=== PATIENT | male | born 1945 | race American Indian/Alaskan Native ===

== ENCOUNTER 2018-11-28 11:39 | Emergency (ER) | payer MEDICARE, OTHER ==
[2018-11-28 11:50] VITALS: BP 149/72
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
--- NOTE | 2018-11-28 12:15 | XRay Report ---
LEFT SHOULDER RADIOGRAPHS INDICATION: Left shoulder pain. COMPARISON: None similar at this institution. FINDINGS: Frontal and Y views of the left shoulder, 3 projections demonstrate normal humeral head contour, well positioned against the glenoid. Normal acromioclavicular joint. Preserved scapular contour. Normal visualized soft tissues and left lung. Few left upper to mid rib deformities, exact age indeterminate. Possible osteopenia. Left axillary surgical clips. Aortic knob calcifications, numerous surgical clips projecting left paraspinal as also sternotomy wires incompletely imaged. CONCLUSION: No acute left shoulder radiographic abnormality with few postsurgical changes and age indeterminate left upper to mid rib deformities noted, as described. Please correlate. Thank you for the opportunity to participate in this patient's care.
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
== END 2018-11-28 14:38 | disposition home or self-care (01) ==
LOC: ED 11:39
DX: S00.531A Contusion of lip, initial encounter (principal); R07.89 Other chest pain; I10 Essential (primary) hypertension; V89.2XXA Person injured in unspecified motor-vehicle accident, traffic, initial encounter; Y93.89 Activity, other specified; Y92.488 Other paved roadways as the place of occurrence of the external cause; Y99.8 Other external cause status
CPT/HCPCS: 71250; 93005; 93010; 99284

== ENCOUNTER 2018-12-14 14:30 | Emergency (ER) | payer MEDICARE, OTHER ==
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
--- NOTE | 2018-12-14 17:03 | XRay Report ---
Left foreleg 3 views INDICATION: Left foreleg pain. IMPRESSION: The left foreleg is intact. Osteopenia. No fracture. Signer Name: Maico Philippe MD Signed: 12/14/2018 4:58 PM Workstation Name: [id number]
--- NOTE | 2018-12-14 17:32 | Vascular Lab Report ---
DUPLEX DOPPLER LOWER EXTREMITY VEINS, LEFT INDICATION: left calf pain and swelling. TECHNIQUE: Duplex doppler imaging was performed through the veins of the left lower extremity using venous compr ession and other maneuvers. COMPARISON: None available. FINDINGS: Common Femoral vein: Negative. Superficial Femoral vein: Negative. Popliteal vein: Negative. Calf veins: Negative. Additional findings: None. IMPRESSION: 1. No sonographic evidence for DVT in the left lower extremity. Signer Name: Maico Philippe MD Signed: 12/14/2018 5:27 PM Workstation Name: [id number]
[2018-12-14 18:13] VITALS: BP 154/74
== END 2018-12-14 18:13 | disposition home or self-care (01) ==
LOC: ED 14:30
DX: M79.662 Pain in left lower leg (principal); I12.0 Hypertensive chronic kidney disease with stage 5 chronic kidney disease or end stage renal disease; N18.6 End stage renal disease; Z79.1 Long term (current) use of non-steroidal anti-inflammatories (NSAID); Z79.899 Other long term (current) drug therapy; Z99.2 Dependence on renal dialysis; V89.2XXA Person injured in unspecified motor-vehicle accident, traffic, initial encounter; Y93.89 Activity, other specified; Y92.488 Other paved roadways as the place of occurrence of the external cause; Y99.8 Other external cause status